=== PATIENT | male | born 1940 | race Caucasian/White ===

== ENCOUNTER → 2016-12-25 | Outpatient (CLI) | payer OTHER, MEDICARE ==
[~2016-12-25] VITALS: Ht 170.2 cm; Wt 78.9 kg
[~2016-12-25] MED LIST: ALLOPURINOL 30300 M2 PO; ASPIR 8181 M1 PO; CARDIO TAB PO; DILTIAZEM ER240 MG PO; LIPITOR40 MG PO; LYCOPENE10 MG PO; MOBIC7.5 MG PO; PROBIOTIC1 EAC1 PO; RAPAFLO8 MG PO; RESTASIS1 EACH OPHTHALMIC; SYMBICORT160 MCG/4. INH; VALSARTAN160 MG PO; VITAMIN B12 PO; VITAMIN C500 M1 PO; VITAMIN D1000 UNI1 PO; WELLBUTRIN 75 M75 M1 PO; XANAX 0.25 MG0.25 MG PO; ZEGERID OTC 201 EACH PO; ZYRTEC10 M5 PO
--- NOTE | ~2016-12-25 | HPC ---
[facility] [place] [address] PAIN MANAGEMENT CONSULTATION Name: TAINA RAMON Room #: REG [facility] Elissa#: [id number] Admission: 12/25/16 Attend Phys: Holden Velez DO Discharge: Date of : 42 Report #: [id number] THIS REPORT FOR: //name// CC: Lakhwinder Velez SUBJECTIVE: The patient is a 76-year-old gentleman seen in consultation at the request of Dr. Lynn for evaluation of pain, low back, right hip, posterior lateral thigh radiating out into his fifth toe. The patient notes the pain is exacerbated with bending and walking. Gets some relief when he is recumbent. Notes episodic paresthesia, but no bowel or bladder continence changes, saddle anesthesia or specific weakness. The patient has been using Aleve [id number]. No prescription physical therapy, but he does do daily exercises and walks about 30 minutes 3-4 times a week, though the latter is becoming more problematic with this ongoing right lumbar radicular pain. Describes steady, shooting, aching pain, rates anywhere from 6-8 on a 0-10 visual analog scale. REVIEW OF SYSTEMS: Complete review of systems was attached to chart and was gone over with the patient. SOCIAL HISTORY: He is , seen in the company of his who is supportive. He does not smoke or drink alcohol to excess. PAST MEDICAL HISTORY: History of hypertension, treated with Diovan and diltiazem. Reactive airway disease, uses Symbicort and ProAir. Zegerid for chronic gastroesophageal reflux. Allopurinol for gout. Bupropion for some chronic anxiety. Benign prostatic hypertrophy for which he takes Rapaflo and dyslipidemia for which he takes Lipitor. SURGICAL HISTORY: Includes only cholecystectomy in 1973. The patient retired this past November. Pain impact score is moderate. PHYSICAL EXAMINATION: VITAL SIGNS: A 5 foot 8 inch, 174 pound gentleman, BMI is 27.2 kilograms per meter squared. Blood pressure is 133/84, pulse 76, respirations are 16, and room air oxygen saturation is 97%. NEUROLOGIC: Cranial nerves 2-12 are grossly intact. HEENT: Pupils equal, reactive to light and accommodation. Extraocular muscles are intact. NECK: Cervical range of motion is full. Thyroid is unremarkable. Upper extremity strength is preserved. HEART: Regular rhythmical without murmur. LUNGS: Clear to auscultation. [facility] [address] [place] [address] PAIN MANAGEMENT CONSULTATION Name: TAINA RAMON [facility]: [facility] [id number] Admission: 12/25/16 Attend Phys: Holden Velez DO Discharge: Date of : 42 Report #: [id number] MUSCULOSKELETAL: Rises from chair using armrest. Gait is tandem, minimally antalgic. He is not able to walk on his right toes (diminished plantarflexion strength). Lumbar flexion is good to 90 degrees. Lower extremity strength is generally symmetric again, with a slight decrease in right plantar flexion and lower extremity flexion. Patellar reflexes are preserved, 2/4. Right Achilles reflex is absent. Left Achilles is 1/4. Straight leg raise is grossly positive at 30 degrees on the right. DIAGNOSTIC STUDIES: Include MRI of the lumbar spine from 12/18/2016. Notes severe facet arthropathy at L4-L5 with grade 1 anterolisthesis. More problematic, however, is at L5-S1 where there was a 4 mm extrusion of the disk effacing the right lateral recess. ASSESSMENT: Symptomatic lumbar radiculopathy by clinical exam and history corroborated with MRI findings in a gentleman with history of reactive airway disease, hypertension, gastroesophageal reflux, chronic anxiety, dyslipidemia, gout, and benign prostatic hypertrophy. RECOMMENDATIONS: 1. Continue Aleve [id number], seems to be tolerating reasonably well. 2. Lumbar epidural injection under fluoroscopy at L5-S1. 3. Continue range of motion, physical stretching and exercises. Thank you for allowing me to participate in the patient's care. I will keep you abreast of his progress. PROCEDURE: Lumbar epidural injection under fluoroscopy. PROCEDURE NOTE: After both written and informed consent to include risk of spinal cord damage, increased pain, weakness and dural puncture, the patient was taken to the fluoroscopy suite, placed in the prone position. After sterile prep and drape, a skin wheal with lidocaine was raised. A 22-gauge epidural Tuohy needle was inserted in the midline at L5-S1 with good loss to resistance. Negative aspiration for cerebrospinal fluid or blood was noted. Then 1 mL of Omnipaque under biplanar fluoroscopy showed good spread within the epidural space. This was followed with 80 mg of triamcinolone plus 1 mL of 1.5% preservative-free Xylocaine, 0.5 mL Xylocaine was then injected to flush the needle; it was removed. The patient was monitored for an appropriate period of time and discharged in good and stable condition. By: [id number] Holden Velez, /nt
[2016-12-25 09:08] VITALS: BP 133/84
== END | disposition home or self-care (01) ==
LOC: PAIN 06:38
DX: M54.16 Radiculopathy, lumbar region (principal); J45.909 Unspecified asthma, uncomplicated; I10 Essential (primary) hypertension; K21.9 Gastro-esophageal reflux disease without esophagitis; F41.9 Anxiety disorder, unspecified; E78.5 Hyperlipidemia, unspecified; N40.0 Benign prostatic hyperplasia without lower urinary tract symptoms; M10.9 Gout, unspecified

== ENCOUNTER → 2017-01-16 | Outpatient (CLI) | payer OTHER, MEDICARE ==
[~2017-01-16] VITALS: Ht 170.2 cm; Wt 79.3 kg
[2017-01-16 10:40] VITALS: BP 122/72
== END | disposition home or self-care (01) ==
LOC: PAIN 01-12 13:58
DX: M54.16 Radiculopathy, lumbar region (principal); M48.06 Spinal stenosis, lumbar region; K21.9 Gastro-esophageal reflux disease without esophagitis; I10 Essential (primary) hypertension; N40.0 Benign prostatic hyperplasia without lower urinary tract symptoms; Z87.891 Personal history of nicotine dependence

== ENCOUNTER → 2017-02-09 | Outpatient (CLI) | payer OTHER, MEDICARE ==
[~2017-02-09] VITALS: Ht 170.2 cm; Wt 77.1 kg
--- NOTE | ~2017-02-09 | HPC ---
[facility] [place] [address] PAIN MANAGEMENT CONSULTATION Name: TAINA RAMON Room #: REG [facility] Elissa#: [id number] Admission: 02/09/17 Attend Phys: Holden Velez DO Discharge: Date of : 42 Report #: [id number] THIS REPORT FOR: //name// CC: Lakhwinder Velez The patient is a 76-year-old gentleman. He was seen in consultation 12/25/2016 diagnosed with symptomatic lumbar radiculopathy secondary to spinal stenosis given a single epidural injection at that time. He returned to the pain clinic 01/16/2017 noting 80-90% relief following the injection, but the pain began to recur. I repeated the injection on 01/16/2017. Returns to pain clinic today noting unfortunately the second injection really afforded only nominal relief. He followed up with Dr. Tobias, who suggested that he get the third injection today. Given the good relief after his first injection, and after having reviewed his diagnostic findings, which does show significant changes in the lumbar spine including severe facet arthropathy and grade 1 anterolisthesis at L4-L5 and L5-S1, notes 4 mm superior extrusion of a disk at this level, we did discuss further treatment options. Surgery may be fairly complex. After discussion with the patient today, we elected to proceed with epidural injection #3. Again, excellent relief following the first injection, only transient relief of the second injection. Subjective pain score is 7 on VAS today. Pain continues in the low back, right leg. PHYSICAL EXAMINATION: Shows a 76-year-old gentleman, BMI is 26.6 kilograms per meter squared. Vital signs are stable as noted on the chart. Rises from chair using armrest, modestly antalgic gait, positive straight leg raise on the right. Diffuse tenderness across the low back. ASSESSMENT: Symptomatic lumbar radiculopathy. PROCEDURE: Lumbar epidural injection under fluoroscopy. PROCEDURE NOTE: After both written and informed consent to include risk of spinal cord damage, increased pain, weakness and dural puncture, the patient was taken to the fluoroscopy suite, placed in the prone position. After sterile prep and drape, a skin wheal with lidocaine was raised. A 22-gauge epidural Tuohy needle was inserted in the midline at L4-5 with good loss to resistance. Negative aspiration for cerebrospinal fluid or blood was noted. Then 1 mL of Omnipaque under biplanar fluoroscopy showed good spread within the epidural space. This was followed with 80 mg of triamcinolone plus 1 mL of 1.5% preservative-free Xylocaine, 0.5 mL Xylocaine was then injected to flush the [address] [address] PAIN MANAGEMENT CONSULTATION Name: TAINA RAMON Room #: REG [facility] Elissa#: [id number] Admission: 02/09/17 Attend Phys: Holden Velez DO Discharge: Date of : 42 Report #: [id number] needle; it was removed. The patient was monitored for an appropriate period of time and discharged in good and stable condition. <ELECTRONICALLY SIGNED> By: Holden Velez DO 02/11/17 0801 [id number] Holden Velez DO /nt
[2017-02-09 10:33] VITALS: BP 135/71
== END | disposition home or self-care (01) ==
LOC: PAIN 06:40
DX: M48.06 Spinal stenosis, lumbar region (principal); G89.29 Other chronic pain; Z98.890 Other specified postprocedural states; Z88.8 Allergy status to other drugs, medicaments and biological substances; Z87.891 Personal history of nicotine dependence